=== PATIENT | female | born 1975 | race Hispanic/Latino ===

== ENCOUNTER 2021-01-26 07:21 | Day surgery (SDC) | payer BC, OTHER ==
[2021-01-24 10:56] LABS: BASOPHILS % (AUTO) 0.7 % (0.0-5.0); HEMATOCRIT 36.5 % (36-48); LYMPHOCYTES % (AUTO) 30.6 % (21.0-51.0); MEAN CORPUSCULAR HEMOGLOBIN 29.4 pg (27.0-33.0); MEAN CORPUSCULAR HGB CONC 34.2 g/dL (32.0-36.0); MEAN CORPUSCULAR VOLUME 85.9 fL (79-99); MONOCYTES % (AUTO) 5.2 % (3.0-13.0); NEUTROPHILS % (AUTO) 60.2 % (40.0-77.0); PLATELET COUNT (AUTO) 245 K/uL (130-400); RED BLOOD CELL COUNT(AUTO) 4.25 MIL/uL (4.00-5.50); RED CELL DISTRIBUTION WIDTH 11.7 % (11.0-15.5); WHITE BLOOD COUNT (AUTO) 6.9 K/uL (4.8-10.8)
[2021-01-26] VITALS (19 sets, daily range): BP systolic 116–147; BP diastolic 70–87
[~2021-01-26] VITALS: Ht 167.6 cm; Wt 84.5 kg
[~2021-01-26 07:21] MED LIST: ACET-2743 PO
[2021-01-26] MEDS ORDERED: METRONIDAZOLE 500 MG TABLET PO SCH (08:00)
[2021-01-26] MEDS ORDERED: PHENAZOPYRIDINE HCL 200 MG TABLET PO ONE (08:00)
[2021-01-26] MEDS ORDERED: LACTATED RINGERS 1000ML 1,000 ML IV ONE (08:00)
[2021-01-26] MEDS ORDERED: METRONIDAZOLE 250 MG TABLET PO ONE (08:00)
[2021-01-26] MEDS: CEFAZOLIN SODIUM 1 GM VIAL IVP ONE ×2 (08:33→12:31)
[2021-01-26] MEDS ORDERED: PROPOFOL 10 MG/ML 20ML VIAL IV ONE (11:57)
[2021-01-26] MEDS ORDERED: LIDOCAINE PF 100MG/5ML (2%) SYRINGE 5ML ONE (11:57)
[2021-01-26] MEDS ORDERED: ONDANSETRON 4MG INJ ONE ×2 (11:57→11:59)
[2021-01-26] MEDS ORDERED: MIDAZOLAM HCL 1 MG/ML 2ML VIAL ONE (11:58)
[2021-01-26] MEDS ORDERED: FENTANYL CITRATE PF 50 MCG/1 ML 2ML VIAL ONE (11:58)
[2021-01-26] MEDS ORDERED: ROCURONIUM 10MG/1ML SYR 10 MG/ML ML ONE ×2 (11:58→12:43)
[2021-01-26] MEDS ORDERED: BUPIVACAINE LIPOSOME/PF 266 MG/20 ML ML IV SCH (12:00)
[2021-01-26] MEDS ORDERED: MEPERIDINE-PF 25 MG/ML SYG ONE (12:28)
[2021-01-26] MEDS ORDERED: DEXAMETHASONE SOD PHOSPHATE 10MG/ML 1ML VIAL ONE (12:46)
[2021-01-26] MEDS ORDERED: FENTANYL CITRATE PF 50 MCG/1 ML 5ML AMP IV ONE (14:27)
[2021-01-26] MEDS ORDERED: NEOSTIGMINE 5MG/5ML SYR IV ONE (14:30)
[2021-01-26] MEDS ORDERED: GLYCOPYRROLATE 1 MG/5 ML SYRINGE ONE (14:30)
[2021-01-26] MEDS ORDERED: ACETAMINOPHEN 500 MG TABLET ONE (16:14)
== END 2021-01-26 17:20 | disposition home or self-care (01) ==
LOC: DAH 07:21
PROVIDERS: ATTEND Obstetrics & Gynecology
DX: R10.2 Pelvic and perineal pain (principal); Z20.822 Contact with and (suspected) exposure to COVID-19; N80.0 Endometriosis of uterus; K66.0 Peritoneal adhesions (postprocedural) (postinfection); N83.8 Other noninflammatory disorders of ovary, fallopian tube and broad ligament; Z83.3 Family history of diabetes mellitus; Z80.0 Family history of malignant neoplasm of digestive organs; Z80.3 Family history of malignant neoplasm of breast; Z82.49 Family history of ischemic heart disease and other diseases of the circulatory system; Z83.42 Family history of familial hypercholesterolemia; Z98.51 Tubal ligation status; Z98.891 History of uterine scar from previous surgery
CPT/HCPCS: 58571; S2900; 36415; 84703; 85025; 86850; 86900; 86901; 87635; A4344; C9290; C9803; J0690; J1100; J2001; J2175; J2250; J2405; J2704; J2710; J3010; J3490; J7030; J7120